=== PATIENT | female | born 1960 | race African-American/Black ===

== ENCOUNTER 2019-07-22 14:30 | Inpatient (IN) | payer SELFPAY ==
--- NOTE | 2019-07-22 15:31 | ER Document Report ---
ED Medical Screen (RME) - General Chief Complaint: Foot Injury Stated Complaint: FOOT INJURY/SWELLING - LEFT Time Seen by Provider: 07/22/19 15:24 Primary Care Provider: MABEL STEPHENS MD [Primary Care Provider] - Follow up as needed Mode of Arrival: Wheelchair Information source: Patient Notes: 59-year-old female presents to ED for a puncture wound to her left great toe a week ago. It is now painful red swollen and draining. It does have a foul odor. She is a diabetic. She also has a history of COPD and states she has a bronchitis now. She is alert oriented respirations regular and unlabored. I have greeted and performed a rapid initial assessment of this patient. A comprehensive ED assessment and evaluation of the patient, analysis of test results and completion of medical decision making process will be conducted by an additional ED providers. - Related Data Allergies/Adverse Reactions: naproxen [From Naprosyn] Allergy (Intermediate, Verified 04/19/10 18:09) Redness, Hives Past Medical History - Past Medical History Cardiac Medical History: Denies: Hx Coronary Artery Disease, Hx Heart Attack, Hx Hypertension Pulmonary Medical History: Reports: Hx Bronchitis, Hx COPD Denies: Hx Asthma, Hx Pneumonia Neurological Medical History: Denies: Hx Cerebrovascular Accident, Hx Seizures Musculoskeltal Medical History: Reports Hx Arthritis - Back & knees Past Surgical History: Denies: Hx Hysterectomy, Hx Pacemaker - Immunizations Hx Diphtheria, Pertussis, Tetanus Vaccination: Yes Physical Exam - Vital signs Vitals: Temp Pulse Resp BP Pulse Ox 98.7 F 88 16 166/88 H 96 07/22/19 14:44 07/22/19 14:44 07/22/19 14:44 07/22/19 14:44 07/22/19 14:44 Course - Vital Signs Vital signs: Temp Pulse Resp BP Pulse Ox 98.7 F 88 16 166/88 H 96 07/22/19 14:44 07/22/19 14:44 07/22/19 14:44 07/22/19 14:44 07/22/19 14:44 Doctor's Discharge - Discharge Referrals: MABEL STEPHENS MD [Primary Care Provider] - Follow up as needed
--- NOTE | 2019-07-22 16:02 | RADIOLOGY REPORT (SQ) ---
EXAM DESCRIPTION: FOOT LEFT COMPLETE IMAGES COMPLETED DATE/TIME: 07/22/2019 3:52 pm REASON FOR STUDY: Puncture wound week ago infected great toe diabeti COMPARISON: None. NUMBER OF VIEWS: Three views. TECHNIQUE: AP, lateral and oblique radiographic images acquired of the left foot. LIMITATIONS: None. FINDINGS: MINERALIZATION: Osteopenia. BONES: No acute fracture or dislocation. There is no erosion. JOINTS: The normal tarsometatarsal alignment is preserved. SOFT TISSUES: Vascular calcifications. There is no soft tissue swelling, radiopaque foreign body or subcutaneous emphysema. OTHER: Dorsal osteophytes in the midfoot and enthesophytes at the calcaneal insertions of the plantar fascia and Achilles tendon. IMPRESSION: No acute osseous abnormality of the left foot. No subcutaneous emphysema or radiopaque foreign body. TECHNICAL DOCUMENTATION: JOB ID: [id number] 2010 [employer]- All Rights Reserved Reading location - IP/workstation name: [email or web address]
[2019-07-22 16:38] LABS: ABSOLUTE BASOPHILS # (AUTO) 0.1 10^3/uL (0.0-0.2); ABSOLUTE EOSINOPHILS # (AUTO) 0.1 10^3/uL (0.0-0.6); ABSOLUTE LYMPHOCYTES (AUTO) 1.8 10^3/uL (0.5-4.7); ABSOLUTE MONOCYTES (AUTO) 0.7 10^3/uL (0.1-1.4); ABSOLUTE NEUT (AUTO) 9.3 10^3/uL (1.7-8.2); BASOPHILS % (AUTO) 0.7 % (0-2); EOSINOPHILS % (AUTO) 0.6 % (0-6); HEMATOCRIT 39.2 % (36.0-47.0); HEMOGLOBIN 13.3 g/dL (12.0-15.5); LYMPHOCYTES % (AUTO) 14.7 % (13-45); MEAN CORPUSCULAR HEMOGLOBIN 29.7 pg (27.0-33.4); MEAN CORPUSCULAR VOLUME 87 fl (80-97); MONOCYTES % (AUTO) 6.2 % (3-13); PLATELET COUNT 292 10^3/uL (150-450); RED BLOOD COUNT 4.49 10^6/uL (3.72-5.28); RED CELL DISTRIBUTION WIDTH 12.9 % (11.5-14.0); SEGMENTED NEUTROPHILS % (AUTO) 77.8 % (42-78); TOTAL CELLS COUNTED % (AUTO) 100 %
[2019-07-22 16:58] LABS: ALBUMIN 3.9 g/dL (3.5-5.0); ALKALINE PHOSPHATASE 240 U/L (38-126); ANION GAP 7 (5-19); ASPARTATE AMINO TRANSFERASE 41 U/L (14-36); BILIRUBIN,TOTAL 0.5 mg/dL (0.2-1.3); BLOOD UREA NITROGEN 17 mg/dL (7-20); CALCIUM 9.5 mg/dL (8.4-10.2); CARBON DIOXIDE 30 mmol/L (22-30); CHLORIDE 98 mmol/L (98-107); GLUCOSE 353 mg/dL (75-110); POTASSIUM 4.3 mmol/L (3.6-5.0); TOTAL PROTEIN 7.5 g/dL (6.3-8.2)
[2019-07-22] MEDS ORDERED: NORMAL SALINE 1000 ML 1,000 ML IV ONE (17:39)
[2019-07-22] MEDS ORDERED: PIPERACILLIN/TAZOBACTAM 3.375 GM VIAL IV ONE (17:41)
[2019-07-22] MEDS ORDERED: INSULIN REG, HUMAN 100 UNIT/ML 3 ML VIAL (PYX) SUBCUT ONE (17:43)
--- NOTE | 2019-07-22 17:46 | ER Document Report ---
ED Extremity Problem, Lower - General Chief Complaint: Foot Injury Stated Complaint: FOOT INJURY/SWELLING - LEFT Time Seen by Provider: 07/22/19 15:24 Mode of Arrival: Wheelchair Information source: Patient Notes: Patient states that she stepped on a tool last week. Patient states that she haji s had persistent left great toe pain since the injury. Patient denies any fever. Patient does report a history of COPD and diabetes and doses insulin 70/30 herself at home to manage her diabetes as she does not have insurance to see her primary doctor. - HPI Patient complains to provider of: Pain, Swelling Location: Foot Occurred: Last week Onset/Duration: Worse Quality of pain: Achy Pain Level: 3 Context: Barefoot Recent injury: Yes Associated symptoms: denies: Fever Exacerbated by: Movement, Walking Relieved by: Nothing - Related Data Allergies/Adverse Reactions: naproxen [From Naprosyn] Allergy (Intermediate, Verified 07/22/19 15:35) Redness, Hives Past Medical History - General Information source: Patient - Social History Smoking Status: Never Smoker Chew tobacco use (# tins/day): No Frequency of alcohol use: None Drug Abuse: None Occupation: nurse aid Lives with: Family Family History: Reviewed & Not Pertinent Patient has homicidal ideation: No - Past Medical History Cardiac Medical History: Denies: Hx Coronary Artery Disease, Hx Heart Attack, Hx Hypertension Pulmonary Medical History: Reports: Hx Bronchitis, Hx COPD Denies: Hx Asthma, Hx Pneumonia Neurological Medical History: Denies: Hx Cerebrovascular Accident, Hx Seizures Endocrine Medical History: Reports: Hx Diabetes Mellitus Type 2 Musculoskeletal Medical History: Reports Hx Arthritis - Back & knees Past Surgical History: Reports: Hx Breast Surgery. Denies: Hx Hysterectomy, Hx Pacemaker - Immunizations Hx Diphtheria, Pertussis, Tetanus Vaccination: Yes Review of Systems - Review of Systems Constitutional: No symptoms reported. denies: Fever EENT: No symptoms reported Cardiovascular: No symptoms reported Respiratory: No symptoms reported. denies: Cough Gastrointestinal: No symptoms reported. denies: Nausea, Vomiting Genitourinary: No symptoms reported Female Genitourinary: No symptoms reported Musculoskeletal: Joint pain - Left foot pain, Other - Foot and great toe swelling Skin: Other - Redness to left great toe Hematologic/Lymphatic: No symptoms reported Neurological/Psychological: No symptoms reported Physical Exam - Vital signs Vitals: Temp Pulse Resp BP Pulse Ox 98.7 F 88 16 166/88 H 96 07/22/19 14:44 07/22/19 14:44 07/22/19 14:44 07/22/19 14:44 07/22/19 14:44 - General General appearance: Appears well, Alert In distress: None - HEENT Head: Normocephalic, Atraumatic Eyes: Normal Conjunctiva: Normal Nasal: Normal Mouth/Lips: Normal Mucous membranes: Normal Neck: Normal, Supple. No: Lymphadenopathy - Respiratory Respiratory status: No respiratory distress Chest status: Nontender Breath sounds: Normal. No: Rales, Rhonchi, Stridor, Wheezing Chest palpation: Normal - Cardiovascular Rhythm: Regular Heart sounds: S1 appreciated, S2 appreciated Murmur: No - Back Back: Normal - Extremities General upper extremity: Normal inspection, Normal ROM General lower extremity: Tender - Tenderness to left foot, Normal ROM Foot: Tender, Edema. No: No evidence of FB Notes: Patient with tenderness to left foot worse to midfoot area, 2+ edema. Patient with erythema to left great toe with open wound to plantar surface of the left great toe, minimal tenderness to the left great toe. Patient with malodorous wound - Neurological Neuro grossly intact: Yes Cognition: Normal Ruben Coma Scale Eye Opening: Spontaneous Ruben Coma Scale Verbal: Oriented [place] Coma Scale Motor: Obeys Commands [place] Coma Scale Total: 15 - Psychological Associated symptoms: Normal affect, Normal mood - Skin Skin Temperature: Warm Skin Moisture: Dry Skin Color: Erythema - Left great toe Character of irregularity: Other - Open wound to plantar surface of left great toe with yellow discoloration, toe mildly erythematous with edema Irregularity with: Swelling, Tenderness, Inflammation Course - Re-evaluation Re-evalutation: 07/22/19 17:47 Consulted with the surgeon Dr. Hutson who agrees to come and evaluate patient. Recommends having medicine to admit patient. 07/22/19 17:[address] Stone who agrees to accept patient as a medical floor admission at this time. Patient is agreeable with plan for admission. - Vital Signs Vital signs: Temp Pulse Resp BP Pulse Ox 98.8 F 84 12 126/68 H 100 07/22/19 21:15 07/22/19 21:20 07/22/19 21:20 07/22/19 21:20 07/22/19 21:20 - Laboratory Result Diagrams: 07/22/19 15:58 07/22/19 15:58 Laboratory results interpreted by me: 07/22/19 07/22/19 15:58 15:58 WBC 12.0 H Absolute Neuts (auto) 9.3 H Sodium 135.4 L Glucose 353 H AST 41 H ALT 49 H Alkaline Phosphatase 240 H 07/22/19 17:47 Labs- All tests 24 hr 07/22/19 07/22/19 15:58 15:58 WBC 12.0 H RBC 4.49 Hgb 13.3 Hct 39.2 MCV 87 MCH 29.7 MCHC 34.0 RDW 12.9 Plt Count 292 Lymph % (Auto) 14.7 [place] % (Auto) 6.2 Eos % (Auto) 0.6 Baso % (Auto) 0.7 Absolute Neuts (auto) 9.3 H Absolute Lymphs (auto) 1.8 Absolute Monos (auto) 0.7 Absolute Eos (auto) 0.1 Absolute Basos (auto) 0.1 Seg Neutrophils % 77.8 Sodium 135.4 L Potassium 4.3 Chloride 98 Carbon Dioxide 30 Anion Gap 7 BUN 17 Creatinine 0.68 Est GFR ( Amer) > 60 Est GFR (MDRD) Non-Af > 60 Glucose 353 H Calcium 9.5 Total Bilirubin 0.5 Direct Bilirubin 0.0 Neonat Total Bilirubin Not Reportable Neonat Direct Bilirubin Not Reportable Neonat Indirect Bili Not Reportable AST 41 H ALT 49 H Alkaline Phosphatase 240 H Total Protein 7.5 Albumin 3.9 - Diagnostic Test Radiology reviewed: Image reviewed, Reports reviewed Discharge - Discharge Clinical Impression: Diabetic foot infection, Hyperglycemia Condition: Stable Disposition: ADMITTED INPATIENT Admitting Provider: Chase (Hospitalist) Unit Admitted: Medical Floor
[2019-07-22] MEDS ORDERED: ONDANSETRON HCL INJ/PF 4 MG/2 ML SDV IV PRN ×2 (18:29→20:52)
[2019-07-22] MEDS ORDERED: DEXTROSE 40% GEL 15 GM TUBE PO PRN ×4 (18:29→18:34)
[2019-07-22] MEDS ORDERED: DEXTROSE 50%-WATER 25 GM/50 ML DISP.SYRIN IV PRN ×4 (18:29→18:34)
[2019-07-22] MEDS ORDERED: GLUCAGON,HUMAN RECOMB 1 MG INJ SUBCUT PRN (18:29)
[2019-07-22] MEDS ORDERED: IPRATROPIUM/ALBUTEROL 0.5-2.5 MG/3 ML AMPUL NEB PRN (18:29)
[2019-07-22] MEDS ORDERED: GLUCAGON,HUMAN RECOMB 1 MG INJ IM PRN (18:34)
--- NOTE | 2019-07-22 18:46 | PDOC H&P ---
History of Present Illness Admission Date/PCP: 07/22/19 17:59 ARTEM CROUCH DO Patient complains of: Left foot wound History of Present Illness: YANI WORTHINGTON is a 59 year old female with a history of type 2 diabetes mellitus, who presents to the hospital complaining of worsening of her left foot wound. Patient sustained a puncture injury to her left big toe about 1 week ago after stepping on her 's tools. Subsequently the area became more inflamed and more swollen. The surrounding area became erythematous. Denies any fevers or chills. She also endorses tenderness over the dorsum and plantar surface of her foot. In the ER, surgery was consulted and will be taking patient to the OR for incision and debridement. Patient currently n.p.o. status. Past Medical History Cardiac Medical History: Denies: Coronary Artery Disease, Myocardial Infarction, Hypertension Pulmonary Medical History: Reports: Bronchitis, Chronic Obstructive Pulmonary Disease (COPD) Denies: Asthma, Pneumonia Neurological Medical History: Denies: Seizures Endocrine Medical History: Reports: Diabetes Mellitus Type 2 Musculoskeltal Medical History: Reports: Arthritis - Back & knees Hematology: Reports: Anemia Past Surgical History Past Surgical History: Denies: Hysterectomy, Pacemaker Social History Lives with: Family Smoking Status: Never Smoker Electronic Cigarette use?: No Frequency of Alcohol Use: Rare Hx Recreational Drug Use: No - Advance Directive Resuscitation Status: Full Code Family History Family History: DM, Hypertension Parental Family History Reviewed: Yes Children Family History Reviewed: NA Sibling(s) Family History Reviewed.: NA Medication/Allergy Home Medications: Hum Insulin NPH/Reg Insulin Hm [Novolin 70-30 100 Unit/Ml Vial] 20 unit SQ QPM 11/07/13 Hum Insulin NPH/Reg Insulin Hm [Novolin 70-30 100 Unit/Ml Vial] 25 units SQ QAM 11/07/13 Lisinopril 5 mg PO DAILY 11/07/13 Metformin HCl [Glucophage] 1,000 mg PO BID 11/07/13 Allergies/Adverse Reactions: naproxen [From Naprosyn] Allergy (Intermediate, Verified 07/22/19 15:35) Redness, Hives Review of Systems Constitutional: ABSENT: chills, fever(s) Eyes: ABSENT: visual disturbances Nose, Mouth, and Throat: ABSENT: sore throat Cardiovascular: ABSENT: chest pain Respiratory: ABSENT: dyspnea Gastrointestinal: ABSENT: abdominal pain, diarrhea, nausea, vomiting Genitourinary: ABSENT: dysuria, hematuria Integumentary: ABSENT: diaphoresis Neurological: ABSENT: dizziness Endocrine: ABSENT: polyuria Allergic/Immunologic: PRESENT: other - denies rhinorrhea Physical Exam Vital Signs: Temp Pulse Resp BP Pulse Ox 98.7 F 88 16 166/88 H 96 07/22/19 15:28 07/22/19 14:44 07/22/19 14:44 07/22/19 14:44 07/22/19 14:44 Intake & Output 07/21/19 07/22/19 07/23/19 06:59 06:59 06:59 Weight 91.1 kg General appearance: PRESENT: no acute distress, cooperative Head exam: PRESENT: normocephalic Neck exam: ABSENT: JVD Respiratory exam: PRESENT: clear to auscultation jadon, unlabored. ABSENT: wheezes Cardiovascular exam: PRESENT: RRR, +S1, +S2. ABSENT: tachycardia GI/Abdominal exam: PRESENT: soft. ABSENT: rebound, rigid, tenderness Extremities exam: PRESENT: other - Erythema surrounding dorsum of the distal left foot. Left toe seems to have indurated pocket of what seems to be likely purulent substance.. ABSENT: pedal edema Neurological exam: PRESENT: alert, awake, oriented to person, oriented to place, oriented to time Psychiatric exam: ABSENT: agitated, anxious Focused psych exam: ABSENT: pressured speech Results Laboratory Results: 07/22/19 15:58 07/22/19 15:58 07/22/19 07/22/19 15:58 15:58 WBC 12.0 H RBC 4.49 Hgb 13.3 Hct 39.2 MCV 87 MCH 29.7 MCHC 34.0 RDW 12.9 Plt Count 292 Seg Neutrophils % 77.8 Sodium 135.4 L Potassium 4.3 Chloride 98 Carbon Dioxide 30 Anion Gap 7 BUN 17 Creatinine 0.68 Est GFR ( Amer) > 60 Glucose 353 H Calcium 9.5 Total Bilirubin 0.5 AST 41 H Alkaline Phosphatase 240 H Total Protein 7.5 Albumin 3.9 Impressions: Foot X-Ray 07/22/19 15:28 IMPRESSION: No acute osseous abnormality of the left foot. No subcutaneous emphysema or radiopaque foreign body. Assessment and Plan - Diagnosis (1) Diabetic foot infection Is this a current diagnosis for this admission?: Yes Plan: Patient has been evaluated by Dr. Hutson who is planning to take patient to the OR. Blood cultures have been obtained Broad-spectrum antibiotic coverage given diabetes with vancomycin and Zosyn. Pain control as needed. (2) Diabetes mellitus type 2 in obese Is this a current diagnosis for this admission?: Yes Plan: Patient states she takes 2000 mg twice daily of metformin and Novolin 70/30 30 units twice a day. Continue 70/30 insulin to start tomorrow. NPO currently. Accu-Cheks and sliding scale insulin. Hyperglycemic at this time. (3) COPD (chronic obstructive pulmonary disease) Qualifiers: COPD type: unspecified COPD Qualified Code(s): J44.9 - Chronic obstructive pulmonary disease, unspecified Is this a current diagnosis for this admission?: Yes Plan: Not acutely exacerbated. Nebulizer treatments as needed. - Time Time Spent with patient: 25-34 minutes
[2019-07-22] MEDS ORDERED: TRAMADOL HCL 50 MG TABLET PO PRN (18:47)
--- NOTE | 2019-07-22 19:28 | PDOC CONSULTATION ---
Consultation Consult Date: 07/22/19 Attending physician:: OCTAVIO FLORES Provider Consulted: NEYDA CESAR Consult reason:: Diabetic foot infection History of Present Illness Admission Date/PCP: 07/22/19 17:59 ARTEM CROUCH DO Patient complains of: Left foot pain History of Present Illness: YANI WORTHINGTON is a 59 year old female YANI WORTHINGTON is a 59 year old female with a history of type 2 diabetes mellitus, who presents to the hospital complaining of worsening of her left foot wound. Patient sustained a puncture injury to her left big toe about 1 week ago after stepping on her 's tools. Subsequently the area became more inflamed and more swollen. The surrounding area became erythematous. Denies any fevers or chills. She also endorses tenderness over the dorsum and plantar surface of her foot. In the ER, surgery was consulted and will be taking patient to the OR for incision and debridement. Patient currently n.p.o. status Past Medical History Cardiac Medical History: Denies: Coronary Artery Disease, Myocardial Infarction, Hypertension Pulmonary Medical History: Reports: Bronchitis, Chronic Obstructive Pulmonary Disease (COPD) Denies: Asthma, Pneumonia Neurological Medical History: Denies: Seizures Endocrine Medical History: Reports: Diabetes Mellitus Type 2 Musculoskeltal Medical History: Reports: Arthritis - Back & knees Hematology: Reports: Anemia Past Surgical History Past Surgical History: Denies: Hysterectomy, Pacemaker Social History Lives with: Family Smoking Status: Never Smoker Electronic Cigarette use?: No Frequency of Alcohol Use: Rare Hx Recreational Drug Use: No - Advance Directive Resuscitation Status: Full Code Family History Family History: DM, Hypertension Parental Family History Reviewed: No Children Family History Reviewed: NA Sibling(s) Family History Reviewed.: NA Medication/Allergy Home Medications: Hum Insulin NPH/Reg Insulin Hm [Novolin 70-30 100 Unit/Ml Vial] 20 unit SQ QPM 11/07/13 Hum Insulin NPH/Reg Insulin Hm [Novolin 70-30 100 Unit/Ml Vial] 25 units SQ QAM 11/07/13 Lisinopril 5 mg PO DAILY 11/07/13 Metformin HCl [Glucophage] 1,000 mg PO BID 11/07/13 Allergies/Adverse Reactions: naproxen [From Naprosyn] Allergy (Intermediate, Verified 07/22/19 15:35) Redness, Hives Review of Systems Constitutional: PRESENT: fever(s) Eyes: ABSENT: as per HPI, visual disturbances, other Ears: ABSENT: as per HPI, hearing changes, other Nose, Mouth, and Throat: ABSENT: as per HPI, headache(s), mouth pain, sore throat, vertigo, other Breasts: ABSENT: as per HPI, other Cardiovascular: ABSENT: as per HPI, chest pain, dyspnea on exertion, edema, orthropnea, palpitations, other Respiratory: ABSENT: as per HPI, cough, dyspnea, hemoptysis, sputum, other Gastrointestinal: ABSENT: as per HPI, abdominal pain, bloating, coffee ground emesis, constipation, diarrhea, dysphagia, heartburn, hematemesis, hematochezia, melena, nausea, vomiting, other Musculoskeletal: ABSENT: joint swelling Integumentary: ABSENT: as per HPI, diaphoresis, erythema, lesions, pruritus, rash, wounds, other Neurological: ABSENT: as per HPI, abnormal gait, abnormal movements, abnormal speech, confusion, convulsions, dizziness, focal weakness, frequent falls, lack of coordination, memory loss, numbness, paresthesias, restless legs, syncope, tingling, tremor(s), vertigo, weakness, other Psychiatric: ABSENT: as per HPI, anxiety, depression, hallucinations, homidical ideation, suicidal ideation, other Endocrine: ABSENT: as per HPI, cold intolerance, flushing, heat intolerance, menstrual abnormalities, polydipsia, polyphagia, polyuria, other Allergic/Immunologic: ABSENT: as per HPI, seasonal rhinorrhea, other Physical Exam Vital Signs: Temp Pulse Resp BP Pulse Ox 98.7 F 88 16 166/88 H 96 07/22/19 15:28 07/22/19 14:44 07/22/19 14:44 07/22/19 14:44 07/22/19 14:44 Intake & Output 07/21/19 07/22/19 07/23/19 06:59 06:59 06:59 Weight 91.1 kg General appearance: PRESENT: mild distress Head exam: PRESENT: normocephalic Eye exam: PRESENT: EOMI Ear exam: PRESENT: normal external ear exam Mouth exam: PRESENT: moist Neck exam: PRESENT: full ROM Cardiovascular exam: PRESENT: RRR Pulses: PRESENT: normal radial pulses, normal femoral pulses, +1 pedal pulses bilateral Breast: PRESENT: Normal GI/Abdominal exam: PRESENT: soft Rectal exam: PRESENT: deferred Extremities exam: PRESENT: other - Left great toe with plantar circumferential ulcer approximately dime sized with purulent drainage swelling of the first metatarsal to the mid forefoot Musculoskeletal exam: PRESENT: ambulatory Neurological exam: PRESENT: alert, awake, oriented to person, oriented to place Psychiatric exam: PRESENT: appropriate affect Skin exam: PRESENT: dry Results Laboratory Results: 07/22/19 15:58 07/22/19 15:58 07/22/19 07/22/19 15:58 15:58 WBC 12.0 H RBC 4.49 Hgb 13.3 Hct 39.2 MCV 87 MCH 29.7 MCHC 34.0 RDW 12.9 Plt Count 292 Seg Neutrophils % 77.8 Sodium 135.4 L Potassium 4.3 Chloride 98 Carbon Dioxide 30 Anion Gap 7 BUN 17 Creatinine 0.68 Est GFR ( Amer) > 60 Glucose 353 H Calcium 9.5 Total Bilirubin 0.5 AST 41 H Alkaline Phosphatase 240 H Total Protein 7.5 Albumin 3.9 Impressions: Foot X-Ray 07/22/19 15:28 IMPRESSION: No acute osseous abnormality of the left foot. No subcutaneous emphysema or radiopaque foreign body. Assessment & Plan - Diagnosis (1) Diabetic foot infection Is this a current diagnosis for this admission?: Yes - Plan Summary Plan Summary: Impression diabetic foot infection and the left great toe with draining purulent fluid from a plantar ulcer. I suspect we will have to perform a left great toe amputation however the patient wishes a trial of debridement first I explained that if should the infection penetrate the deep tissues as I suspect it will she will need a toe a mputation but we will start with the local wound debridement patient agrees to proceed risks and benefits of been discussed
[2019-07-22] MEDS ORDERED: VANCOMYCIN HCL 1,250 MG in DEXTROSE 5%-WATER 250 ML IV ONE (20:00)
[2019-07-22] MEDS ORDERED: KETAMINE HCL INJ 500 MG/10 ML VIAL ONE (20:18)
[2019-07-22] MEDS ORDERED: FENTANYL CITRATE INJ/PF 100 MCG/2 ML AMPUL ONE (20:18)
[2019-07-22] MEDS ORDERED: MIDAZOLAM 2 MG/2 ML INJ ONE (20:18)
[2019-07-22] MEDS ORDERED: DEXMEDETOMIDINE INJ 80 MCG/20 ML VIAL IV ONE (20:19)
[2019-07-22] MEDS ORDERED: LIDOCAINE 2% INJ-PF (20 MG/ML) 10 ML AMPUL ONE (20:19)
[2019-07-22] MEDS ORDERED: PROPOFOL INJ 200 MG/20 ML VIAL IV ONE (20:19)
[2019-07-22] MEDS ORDERED: FENTANYL CITRATE INJ/PF 100 MCG/2 ML AMPUL IV PRN ×3 (20:52)
[2019-07-22] MEDS ORDERED: PROMETHAZINE HCL INJ 25 MG/1 ML VIAL IV PRN ×2 (20:52)
[2019-07-22] MEDS ORDERED: DIPHENHYDRAMINE HCL 50 MG/ML VIAL IV PRN (20:52)
[2019-07-22] MEDS ORDERED: MEPERIDINE HCL/PF INJ 25 MG/1 ML DISP.SYRIN IV PRN (20:52)
--- NOTE | 2019-07-22 21:25 | Operative Report ---
Nonrecallable Operative Report DATE OF SURGERY: 07/22/19 PREOPERATIVE DIAGNOSIS: Diabetic foot infection left great toe POSTOPERATIVE DIAGNOSIS: Diabetic foot infection left great toe OPERATION: Left great toe amputation SURGEON: NEYDA CESAR ANESTHESIA: IV-Regional TISSUE REMOVED OR ALTERED: Left great toe COMPLICATIONS: None INTRAOPERATIVE FINDINGS: 10 cc PROCEDURE: Patient was brought to the operating awake alert in stable condition placed on the operative table supine position and given a regional IV ankle block as well as sedation. After appropriate timeout and site verification the procedure commenced. The left great toe had a draining abscess at the plantar surface of it and it was excised elliptically with a 15 blade dissection was carried down through the deep subcutaneous tissue and we noted the infection going deep to the distal phalanx for this reason I elected to perform an amputation. A racquet incision was made at the base of the first metatarsal on the medial aspect and continued to the webspace. Dissection was then carried down through subcutaneous tissue and the tendons with Bovie cautery or the 15 blade when she reached the metatarsal head it was identified and the periosteum was raised to the mid metatarsal and then the bone was amputated with a bone cutter. Hemostasis of the bone edge was obtained with digital pressure and Bovie cautery the skin easily would reapproximated. The wound was irrigated with normal saline suctioned dry when hemostasis was intact the deep tissue was reapproximated with interrupted 3-0 Vicryl and then the skin was reapproximated with loosely placed 2-0 nylon sterile dressing was applied which completed the procedure estimated blood loss was 10 cc sponge needle counts were correct x2 the patient was then transferred recovery in stable condition
[2019-07-22] MEDS ORDERED: VANCOMYCIN HCL INJ 1000 MG VIAL IV SCH (22:00)
[2019-07-23] MEDS: ACETAMINOPHEN 325 MG TABLET PO PRN ×3 (00:26→12:51)
[2019-07-23] MEDS: PIPERACILLIN/TAZOBACTAM 3.375 GM VIAL IV SCH ×2 (00:52→06:45)
[2019-07-23] MEDS: INSULIN LISPRO 100 UNIT/ML 3 ML VIAL SUBCUT SCH ×4 (00:52→17:15)
[2019-07-23 05:09] LABS: HEMATOCRIT 32.6 % (36.0-47.0); HEMOGLOBIN 11.3 g/dL (12.0-15.5); MEAN CORPUSCULAR HGB CONC 34.8 g/dL (32.0-36.0); MEAN CORPUSCULAR VOLUME 86 fl (80-97); PLATELET COUNT 240 10^3/uL (150-450); RED BLOOD COUNT 3.78 10^6/uL (3.72-5.28); RED CELL DISTRIBUTION WIDTH 12.9 % (11.5-14.0); WHITE BLOOD COUNT 9.4 10^3/uL (4.0-10.5)
[2019-07-23 05:35] LABS: ANION GAP 7 (5-19); BLOOD UREA NITROGEN 13 mg/dL (7-20); CALCIUM 8.2 mg/dL (8.4-10.2); CARBON DIOXIDE 27 mmol/L (22-30); CHLORIDE 100 mmol/L (98-107); GLUCOSE 333 mg/dL (75-110); POTASSIUM 3.8 mmol/L (3.6-5.0)
[2019-07-23] MEDS: HUM INSULIN NPH/REG INSULIN HM 100 UNIT/1 ML 3 ML SUBCUT SCH ×2 (08:45→17:20)
[2019-07-23] MEDS: ENOXAPARIN SODIUM INJ 40 MG/0.4 ML DISP.SYRIN SUBCUT SCH (10:25)
[2019-07-23] MEDS: VANCOMYCIN HCL 750 MG in DEXTROSE 5%-WATER 250 ML IV SCH ×2 (10:25→22:04)
--- NOTE | 2019-07-23 14:17 | PDOC PROGRESS REPORT ---
Subjective Progress Note for:: 07/23/19 Subjective:: Still complaining of pain at the amputation site. The prescribed pain medicine is somewhat helpful for a short period. Surgery has been by already. She is passing flatus but has not had a bowel movement. Reason For Visit: INFECTED DIABETIC FOOT WOUND Physical Exam Vital Signs: Temp Pulse Resp BP Pulse Ox 98.2 F 86 16 141/70 H 96 07/23/19 10:57 07/23/19 10:57 07/23/19 10:57 07/23/19 10:57 07/23/19 10:57 Intake & Output 07/22/19 07/23/19 07/24/19 06:59 06:59 06:59 Intake Total 1400 430 Output Total 280 Balance 1120 430 Weight 91.1 kg General appearance: PRESENT: cooperative, mild distress, well-developed, well- nourished Head exam: PRESENT: atraumatic, normocephalic Eye exam: PRESENT: conjunctiva pink. ABSENT: scleral icterus Ear exam: PRESENT: normal external ear exam. ABSENT: bleeding, drainage Mouth exam: PRESENT: moist, tongue midline Respiratory exam: PRESENT: clear to auscultation jadon, symmetrical, unlabored. ABSENT: accessory muscle use, rales, rhonchi, tachypnea, wheezes Cardiovascular exam: PRESENT: RRR, +S1, +S2, systolic murmur - 2/6. ABSENT: diastolic murmur, irregular rhythm, tachycardia GI/Abdominal exam: PRESENT: normal bowel sounds, soft. ABSENT: distended, guarding, tenderness Rectal exam: PRESENT: deferred Extremities exam: PRESENT: other - Left foot wrapped in Kerlix gauze. Blood- tinged area at the site of the hallux amputation Musculoskeletal exam: ABSENT: ambulatory - Has not been out of bed yet since the surgery Neurological exam: PRESENT: alert, awake, oriented to person, oriented to place, oriented to time, oriented to situation, CN II-XII grossly intact. ABSENT: alte red, motor sensory deficit Psychiatric exam: PRESENT: flat affect. ABSENT: agitated, anxious Focused psych exam: ABSENT: delusional, paranoid, restlessness Skin exam: PRESENT: dry, normal color, warm, other - Dressing on left foot as noted above. ABSENT: rash Results Laboratory Results: 07/23/19 04:26 07/23/19 04:26 07/22/19 07/22/19 07/23/19 15:58 15:58 04:26 WBC 12.0 H 9.4 RBC 4.49 3.78 Hgb 13.3 11.3 L Hct 39.2 32.6 L MCV 87 86 MCH 29.7 30.0 MCHC 34.0 34.8 RDW 12.9 12.9 Plt Count 292 240 Seg Neutrophils % 77.8 Sodium 135.4 L Potassium 4.3 Chloride 98 Carbon Dioxide 30 Anion Gap 7 BUN 17 Creatinine 0.68 Est GFR ( Amer) > 60 Glucose 353 H Calcium 9.5 Magnesium Total Bilirubin 0.5 AST 41 H Alkaline Phosphatase 240 H Total Protein 7.5 Albumin 3.9 07/23/19 04:26 WBC RBC Hgb Hct MCV MCH MCHC RDW Plt Count Seg Neutrophils % Sodium 134.0 L Potassium 3.8 Chloride 100 Carbon Dioxide 27 Anion Gap 7 BUN 13 Creatinine 0.62 Est GFR ( Amer) > 60 Glucose 333 H Calcium 8.2 L Magnesium 1.6 Total Bilirubin AST Alkaline Phosphatase Total Protein Albumin Impressions: Foot X-Ray 07/22/19 15:28 IMPRESSION: No acute osseous abnormality of the left foot. No subcutaneous emphysema or radiopaque foreign body. Assessment and Plan - Diagnosis (1) Diabetic foot infection Is this a current diagnosis for this admission?: Yes Plan: Patient has been evaluated by Dr. Hutson who is planning to take patient to the OR. Blood cultures have been obtained Broad-spectrum antibiotic coverage given diabetes with vancomycin and Zosyn. Pain control as needed. 07/23/2019 Of the amputation has been performed. The patient will likely only need for 5 days of IV antibiotics postop as the infected tissue was removed and blood cultures are negative so far. (2) Hyperglycemia due to type 2 diabetes mellitus Qualifiers: Diabetes mellitus extermination inspector insulin use: with extermination inspector use Qualified Code(s): E11.65 - Type 2 diabetes mellitus with hyperglycemia; Z79.4 - joint terminal attack controller (current) use of insulin Is this a current diagnosis for this admission?: Yes Plan: 07/23/2019 Accu-Cheks still variable. 70/30 insulin has been restarted. Continue current regimen including sliding scale. (3) COPD (chronic obstructive pulmonary disease) Qualifiers: COPD type: unspecified COPD Qualified Code(s): J44.9 - Chronic obstructive pulmonary disease, unspecified Is this a current diagnosis for this admission?: Yes Plan: Not acutely exacerbated. Nebulizer treatments as needed. 07/23/2019 Stable as noted above. No changes in the treatment plan. (4) Status post amputation of left great toe Is this a current diagnosis for this admission?: Yes Plan: 07/23/2019 Physical therapy consult has been ordered. - Time Time Spent with patient: Less than 15 minutes Medications reviewed and adjusted accordingly: Yes Anticipated discharge: Home
[2019-07-23] MEDS: PIPERACILLIN SODIUM/TAZOBACTAM 3.375 GM in NORMAL SALINE 100 ML IV SCH (14:34)
[2019-07-23] MEDS: TRAMADOL HCL 50 MG TABLET PO PRN (14:44)
[2019-07-23] MEDS: METFORMIN HCL 500 MG TABLET PO SCH (17:19)
--- NOTE | 2019-07-23 20:12 | PDOC PROGRESS REPORT ---
Subjective Progress Note for:: 07/23/19 Reason For Visit: INFECTED DIABETIC FOOT WOUND Physical Exam Vital Signs: Temp Pulse Resp BP Pulse Ox 98.8 F 92 16 147/71 H 95 07/23/19 16:05 07/23/19 16:05 07/23/19 16:05 07/23/19 16:05 07/23/19 16:05 Intake & Output 07/22/19 07/23/19 07/24/19 06:59 06:59 06:59 Intake Total 1400 1230 Output Total 280 Balance 1120 1230 Weight 91.1 kg Results Laboratory Results: 07/23/19 04:26 07/23/19 04:26 07/23/19 07/23/19 04:26 04:26 WBC 9.4 RBC 3.78 Hgb 11.3 L Hct 32.6 L MCV 86 MCH 30.0 MCHC 34.8 RDW 12.9 Plt Count 240 Sodium 134.0 L Potassium 3.8 Chloride 100 Carbon Dioxide 27 Anion Gap 7 BUN 13 Creatinine 0.62 Est GFR ( Amer) > 60 Glucose 333 H Calcium 8.2 L Magnesium 1.6 Impressions: Foot X-Ray 07/22/19 15:28 IMPRESSION: No acute osseous abnormality of the left foot. No subcutaneous emphysema or radiopaque foreign body. Assessment & Plan - Diagnosis (1) Diabetic foot infection Is this a current diagnosis for this admission?: Yes - Plan Summary Plan Summary: This is a 59-year-old female with a severe diabetic foot infection. She is status post amputation of the great toe. The incision is clean, dry, and intact. I will leave her dressing in place today. Plan for removal of the dressing tomorrow. I have encouraged her to begin with ambulation. She should avoid all pressure to the forefoot. Weightbearing on the heel only. The patient expressed good understanding of this. Surgery will continue to follow with you.
[2019-07-24] MEDS: PIPERACILLIN SODIUM/TAZOBACTAM 3.375 GM in NORMAL SALINE 100 ML IV SCH ×4 (01:17→22:31)
[2019-07-24] MEDS: INSULIN LISPRO 100 UNIT/ML 3 ML VIAL SUBCUT SCH ×4 (02:07→17:14)
[2019-07-24] MEDS: TRAMADOL HCL 50 MG TABLET PO PRN ×2 (05:16→22:30)
[2019-07-24 05:39] LABS: ABSOLUTE EOSINOPHILS # (AUTO) 0.1 10^3/uL (0.0-0.6); ABSOLUTE LYMPHOCYTES (AUTO) 1.6 10^3/uL (0.5-4.7); ABSOLUTE MONOCYTES (AUTO) 0.8 10^3/uL (0.1-1.4); ABSOLUTE NEUT (AUTO) 6.6 10^3/uL (1.7-8.2); BASOPHILS % (AUTO) 0.1 % (0-2); EOSINOPHILS % (AUTO) 0.9 % (0-6); HEMATOCRIT 33.6 % (36.0-47.0); HEMOGLOBIN 11.5 g/dL (12.0-15.5); LYMPHOCYTES % (AUTO) 17.6 % (13-45); MEAN CORPUSCULAR HEMOGLOBIN 29.6 pg (27.0-33.4); MEAN CORPUSCULAR HGB CONC 34.1 g/dL (32.0-36.0); MEAN CORPUSCULAR VOLUME 87 fl (80-97); MONOCYTES % (AUTO) 9.2 % (3-13); PLATELET COUNT 256 10^3/uL (150-450); RED BLOOD COUNT 3.86 10^6/uL (3.72-5.28); RED CELL DISTRIBUTION WIDTH 12.8 % (11.5-14.0); SEGMENTED NEUTROPHILS % (AUTO) 72.2 % (42-78); TOTAL CELLS COUNTED % (AUTO) 100 %; WHITE BLOOD COUNT 9.1 10^3/uL (4.0-10.5)
[2019-07-24] MEDS: HUM INSULIN NPH/REG INSULIN HM 100 UNIT/1 ML 3 ML SUBCUT SCH ×2 (07:42→17:06)
--- NOTE | 2019-07-24 09:34 | PDOC PROGRESS REPORT ---
Subjective Progress Note for:: 07/24/19 Reason For Visit: INFECTED DIABETIC FOOT WOUND Physical Exam Vital Signs: Temp Pulse Resp BP Pulse Ox 98.0 F 94 17 156/66 H 98 07/24/19 00:21 07/24/19 00:21 07/24/19 00:21 07/24/19 00:21 07/24/19 00:21 Intake & Output 07/23/19 07/24/19 07/25/19 06:59 06:59 06:59 Intake Total 1400 1580 Output Total 280 Balance 1120 1580 Weight 91.1 kg 91.1 kg Results Laboratory Results: 07/24/19 04:53 07/23/19 04:26 07/24/19 04:53 WBC 9.1 RBC 3.86 Hgb 11.5 L Hct 33.6 L MCV 87 MCH 29.6 MCHC 34.1 RDW 12.8 Plt Count 256 Seg Neutrophils % 72.2 Impressions: Foot X-Ray 07/22/19 15:28 IMPRESSION: No acute osseous abnormality of the left foot. No subcutaneous emphysema or radiopaque foreign body. Assessment & Plan - Diagnosis (1) Diabetic foot infection Is this a current diagnosis for this admission?: Yes - Plan Summary Plan Summary: This is a 59-year-old female with a severe diabetic foot infection. She is status post amputation of the great toe. The incision is clean, dry, and intact. I have removed her dressing today. I have encouraged her to begin ambulation. She should avoid all pressure to the forefoot. Weightbearing on the heel only. The patient expressed good understanding of this. It is okay for her to shower. No dressing is necessary. Leave sutures in place x2 weeks. Follow-up with [facility] for suture removal at that time. Surgery will sign off. Please renotify with any questions or concerns.
[2019-07-24] MEDS: METFORMIN HCL 500 MG TABLET PO SCH ×2 (10:14→17:43)
[2019-07-24] MEDS: ENOXAPARIN SODIUM INJ 40 MG/0.4 ML DISP.SYRIN SUBCUT SCH (10:14)
[2019-07-24] MEDS: VANCOMYCIN HCL 750 MG in DEXTROSE 5%-WATER 250 ML IV SCH (10:14)
[2019-07-24] MEDS: ACETAMINOPHEN 325 MG TABLET PO PRN (10:15)
--- NOTE | 2019-07-24 12:19 | PDOC PROGRESS REPORT ---
Subjective Progress Note for:: 07/24/19 Subjective:: Still having pain in the toe but she is able to bear weight on the heel. Physical therapy did see her today. She was able to use the walker and walk to the bathroom. Reason For Visit: INFECTED DIABETIC FOOT WOUND Physical Exam Vital Signs: Temp Pulse Resp BP Pulse Ox 98.0 F 94 17 156/66 H 98 07/24/19 00:21 07/24/19 00:21 07/24/19 00:21 07/24/19 00:21 07/24/19 00:21 Intake & Output 07/23/19 07/24/19 07/25/19 06:59 06:59 06:59 Intake Total 1400 1580 Output Total 280 Balance 1120 1580 Weight 91.1 kg 91.1 kg General appearance: PRESENT: no acute distress, cooperative, well-developed Head exam: PRESENT: atraumatic, normocephalic Ear exam: PRESENT: normal external ear exam. ABSENT: bleeding, drainage Respiratory exam: PRESENT: clear to auscultation jadon, symmetrical, unlabored. ABSENT: rales, rhonchi, tachypnea, wheezes Cardiovascular exam: PRESENT: RRR, +S1, +S2. ABSENT: diastolic murmur, i rregular rhythm, systolic murmur GI/Abdominal exam: PRESENT: normal bowel sounds, soft. ABSENT: distended, guarding, tenderness Rectal exam: PRESENT: deferred Gentrourinary exam: ABSENT: indwelling catheter Extremities exam: ABSENT: pedal edema Musculoskeletal exam: PRESENT: ambulatory - Heel weightbearing on the left Neurological exam: PRESENT: alert, awake, oriented to person, oriented to place, oriented to time, oriented to situation, CN II-XII grossly intact Psychiatric exam: PRESENT: flat affect. ABSENT: agitated, anxious Focused psych exam: ABSENT: delusional, paranoid, restlessness Skin exam: PRESENT: dry, warm, other - Right hallux amputation. ABSENT: rash Results Laboratory Results: 07/24/19 04:53 07/23/19 04:26 07/24/19 04:53 WBC 9.1 RBC 3.86 Hgb 11.5 L Hct 33.6 L MCV 87 MCH 29.6 MCHC 34.1 RDW 12.8 Plt Count 256 Seg Neutrophils % 72.2 Impressions: Foot X-Ray 07/22/19 15:28 IMPRESSION: No acute osseous abnormality of the left foot. No subcutaneous emphysema or radiopaque foreign body. Assessment and Plan - Diagnosis (1) Diabetic foot infection Is this a current diagnosis for this admission?: Yes Plan: Patient has been evaluated by Dr. Hutson who is planning to take patient to the OR. Blood cultures have been obtained Broad-spectrum antibiotic coverage given diabetes with vancomycin and Zosyn. Pain control as needed. 07/23/2019 Of the amputation has been performed. The patient will likely only need for 5 days of IV antibiotics postop as the infected tissue was removed and blood cultures are negative so far. 07/24/2019 The patient had physical therapy today. She is using a walker. Consider di scharge tomorrow with prolonged course of oral antibiotics to compensate for the last 2 days of IV antibiotics. (2) Hyperglycemia due to type 2 diabetes mellitus Qualifiers: Diabetes mellitus mcfp insulin use: with mcfp use Qualified Code(s): E11.65 - Type 2 diabetes mellitus with hyperglycemia; Z79.4 - [facility] (current) use of insulin Is this a current diagnosis for this admission?: Yes Plan: 07/23/2019 Accu-Cheks still variable. 70/30 insulin has been restarted. Continue current regimen including sliding scale. 07/24/2019 Starting to achieve better control. Adjust insulin accordingly. (3) COPD (chronic obstructive pulmonary disease) Qualifiers: COPD type: unspecified COPD Qualified Code(s): J44.9 - Chronic obstructive pulmonary disease, unspecified Is this a current diagnosis for this admission?: Yes Plan: Not acutely exacerbated. Nebulizer treatments as needed. 07/23/2019 Stable as noted above. No changes in the treatment plan. 07/24/2019 Continue current regimen. Breathing is comfortable and patient remains adequ ately saturated on room air. (4) Status post amputation of left great toe Is this a current diagnosis for this admission?: Yes Plan: 07/23/2019 Physical therapy consult has been ordered. 07/24/2019 Patient work with physical therapy today. She is having pain but is able to slowly ambulate with heel weightbearing using a walker. I explained that she would benefit from a Darco offloading shoe and she will need a walker with home physical therapy after discharge. - Time Time Spent with patient: Less than 15 minutes Medications reviewed and adjusted accordingly: Yes Anticipated discharge: Home with Homehealth Within: within 48 hours
[2019-07-24] MEDS ORDERED: HUM INSULIN NPH/REG INSULIN HM 100 UNIT/1 ML 3 ML SUBCUT ONE (17:30)
[2019-07-24 22:03] LABS: VANCOMYCIN,TROUGH 6.6 ug/mL (5.0-20.0)
[2019-07-24 22:17] LABS: C DIFFICILE GDH NEGATIVE (NEGATIVE)
[2019-07-25] MEDS: VANCOMYCIN HCL 750 MG in DEXTROSE 5%-WATER 250 ML IV SCH (01:00)
[2019-07-25] MEDS: INSULIN LISPRO 100 UNIT/ML 3 ML VIAL SUBCUT SCH ×4 (01:45→17:34)
[2019-07-25] MEDS: PIPERACILLIN SODIUM/TAZOBACTAM 3.375 GM in NORMAL SALINE 100 ML IV SCH ×2 (05:35→15:13)
[2019-07-25] MEDS: ACETAMINOPHEN 325 MG TABLET PO PRN (05:45)
[2019-07-25] MEDS ORDERED: VANCOMYCIN HCL 750 MG in DEXTROSE 5%-WATER 250 ML IV SCH ×2 (08:00→10:00)
[2019-07-25] MEDS: HUM INSULIN NPH/REG INSULIN HM 100 UNIT/1 ML 3 ML SUBCUT SCH ×2 (08:21→17:36)
[2019-07-25] MEDS: TRAMADOL HCL 50 MG TABLET PO PRN (08:26)
[2019-07-25] MEDS: METFORMIN HCL 500 MG TABLET PO SCH (09:49)
[2019-07-25] MEDS: ENOXAPARIN SODIUM INJ 40 MG/0.4 ML DISP.SYRIN SUBCUT SCH (09:50)
[2019-07-25 12:00] VITALS: BP 147/79
--- NOTE | 2019-07-25 14:33 | PDOC DISCHARGE SUMMARY ---
Impression - Admit/DC Date/PCP Admission Date/Primary Care Provider: 07/24/19 09:49 ARTEM CORTEZUMATE, Discharge Date: 07/25/19 - Discharge Diagnosis (1) Diabetic foot infection Is this a current diagnosis for this admission?: Yes (2) Hyperglycemia due to type 2 diabetes mellitus Is this a current diagnosis for this admission?: Yes (3) COPD (chronic obstructive pulmonary disease) Is this a current diagnosis for this admission?: Yes (4) Status post amputation of left great toe Is this a current diagnosis for this admission?: Yes - Additional Information Resuscitation Status: Full Code Referrals: NEYDA CESAR MD [ACTIVE STAFF] - 08/05/19 8:45 am Prescriptions: Amoxicillin/Potassium Clav [Augmentin 875-125 Tablet] 1 tab PO Q12 3 Days #6 tablet Home Medications: Hum Insulin NPH/Reg Insulin Hm [Novolin 70-30 100 Unit/ml Vial] 30 unit SQ QPM 11/07/13 Hum Insulin NPH/Reg Insulin Hm [Novolin 70-30 100 Unit/ml Vial] 30 units SQ QAM 11/07/13 Metformin HCl [Glucophage] 1,000 mg PO BID 11/07/13 Acetaminophen [Tylenol 325 mg Tablet] 1,000 mg PO Q6HP PRN tablet 07/25/19 Amoxicillin/Potassium Clav [Augmentin 875-125 Tablet] 1 tab PO Q12 3 Days #6 tablet 07/25/19 Hum Insulin NPH/Reg Insulin Hm [Insulin 70-30 (NPH/Reg) 100 unit/mL] 30 unit SUBCUT BIDACBS unit 07/25/19 History of Present Illiness History of Present Illness: YANI WORTHINGTON is a 59 year old female with a history of type 2 diabetes mellitus, who presents to the hospital complaining of worsening of her left foot wound. Patient sustained a puncture injury to her left big toe about 1 week ago after stepping on her 's tools. Subsequently the area became more inflamed and more swollen. The surrounding area became erythematous. Denies any fevers or chills. She also endorses tenderness over the dorsum and plantar surface of her foot. In the ER, surgery was consulted and will be taking patient to the OR for incision and debridement. Patient currently n.p.o. status. Hospital Course Hospital Course: (1) Diabetic foot infection Is this a current diagnosis for this admission?: Yes Plan: Patient has been evaluated by Dr. Cesar who is planning to take patient to the OR. Blood cultures have been obtained Broad-spectrum antibiotic coverage given diabetes with vancomycin and Zosyn. Pain control as needed. 07/23/2019 Of the amputation has been performed. The patient will likely only need for 5 days of IV antibiotics postop as the infected tissue was removed and blood cultures are negative so far. 07/24/2019 The patient had physical therapy today. She is using a walker. Consider discharge tomorrow with prolonged course of oral antibiotics to compensate for the last 2 days of IV antibiotics. 07/25/2019 We will use Augmentin as an outpatient to complete antibiotic therapy (2) Hyperglycemia due to type 2 diabetes mellitus Qualifiers: Diabetes mellitus truck technician insulin use: with truck technician use Qualified Code(s): E11.65 - Type 2 diabetes mellitus with hyperglycemia; Z79.4 - group home (current) use of insulin Is this a current diagnosis for this admission?: Yes Plan: 07/23/2019 Accu-Cheks still variable. 70/30 insulin has been restarted. Continue current regimen including sliding scale. 07/24/2019 Starting to achieve better control. Adjust insulin accordingly. 07/25/2019 Adjustments made to insulin regimen. If she maintains a strict diabetic diet that should be adequate. It is more likely that she will not and her insulin needs will increase back to her preadmission levels (3) COPD (chronic obstructive pulmonary disease) Qualifiers: COPD type: unspecified COPD Qualified Code(s): J44.9 - Chronic obstructive pulmonary disease, unspecified Is this a current diagnosis for this admission?: Yes Plan: Not acutely exacerbated. Nebulizer treatments as needed. 07/23/2019 Stable as noted above. No changes in the treatment plan. 07/24/2019 Continue current regimen. Breathing is comfortable and patient remains adequately saturated on room air. 07/25/2019 Continue home regimen (4) Status post amputation of left great toe Is this a current diagnosis for this admission?: Yes Plan: 07/23/2019 Physical therapy consult has been ordered. 07/24/2019 Patient work with physical therapy today. She is having pain but is able to slowly ambulate with heel weightbearing using a walker. I explained that she would benefit from a Darco offloading shoe and she will need a walker with home physical therapy after discharge. 07/25/2019 Unfortunately the patient has no insurance and so home health, physical therapy and durable medical equipment not available excepted by [employer]hp[employer] payment. I reviewed with the patient the need for the short course of antibiotics and made sure that we prescribed a generic antibiotic that should be affordable. Hopefully she will be able to find an inexpensive walker or borrow one from somebody. She does have a follow-up with surgery for 2 weeks and she wants to reestablish with her primary care provider after this hospitalization. Physical Exam Vital Signs: Temp Pulse Resp BP Pulse Ox 98.1 F 87 16 147/79 H 96 07/25/19 11:01 07/25/19 11:01 07/25/19 11:01 07/25/19 11:01 07/25/19 11:01 Intake & Output 07/24/19 07/25/19 07/26/19 06:59 06:59 06:59 Intake Total 1680 1420 360 Balance 1680 1420 360 Weight 91.1 kg 91.1 kg General appearance: PRESENT: no acute distress, well-developed Respiratory exam: PRESENT: clear to auscultation jadon, symmetrical, unlabored. ABSENT: tachypnea, wheezes Cardiovascular exam: PRESENT: RRR, +S1, +S2 GI/Abdominal exam: PRESENT: normal bowel sounds, soft. ABSENT: tenderness Neurological exam: PRESENT: alert, awake, oriented to person, oriented to place, oriented to situation Psychiatric exam: PRESENT: flat affect. ABSENT: agitated, anxious Results Laboratory Results: WBC 9.1 10^3/uL (4.0-10.5) 07/24/19 04:53 RBC 3.86 10^6/uL (3.72-5.28) 07/24/19 04:53 Hgb 11.5 g/dL (12.0-15.5) L 07/24/19 04:53 Hct 33.6 % (36.0-47.0) L 07/24/19 04:53 MCV 87 fl (80-97) 07/24/19 04:53 MCH 29.6 pg (27.0-33.4) 07/24/19 04:53 MCHC 34.1 g/dL (32.0-36.0) 07/24/19 04:53 RDW 12.8 % (11.5-14.0) 07/24/19 04:53 Plt Count 256 10^3/uL (150-450) 07/24/19 04:53 Lymph % (Auto) 17.6 % (13-45) 07/24/19 04:53 Maury % (Auto) 9.2 % (3-13) 07/24/19 04:53 Eos % (Auto) 0.9 % (0-6) 07/24/19 04:53 Baso % (Auto) 0.1 % (0-2) 07/24/19 04:53 Absolute Neuts (auto) 6.6 10^3/uL (1.7-8.2) 07/24/19 04:53 Absolute Lymphs (auto) 1.6 10^3/uL (0.5-4.7) 07/24/19 04:53 Absolute Monos (auto) 0.8 10^3/uL (0.1-1.4) 07/24/19 04:53 Absolute Eos (auto) 0.1 10^3/uL (0.0-0.6) 07/24/19 04:53 Absolute Basos (auto) 0.0 10^3/uL (0.0-0.2) 07/24/19 04:53 Seg Neutrophils % 72.2 % (42-78) 07/24/19 04:53 Sodium 134.0 mmol/L (137-145) L 07/23/19 04:26 Potassium 3.8 mmol/L (3.6-5.0) 07/23/19 04:26 Chloride 100 mmol/L (98-107) 07/23/19 04:26 Carbon Dioxide 27 mmol/L (22-30) 07/23/19 04:26 Anion Gap 7 (5-19) 07/23/19 04:26 BUN 13 mg/dL (7-20) 07/23/19 04:26 Creatinine 0.78 mg/dL (0.52-1.25) 07/24/19 21:28 Est GFR ( Amer) > 60 (>60) 07/24/19 21:28 Est GFR (MDRD) Non-Af > 60 (>60) 07/24/19 21:28 Glucose 333 mg/dL (75-110) H 07/23/19 04:26 POC Glucose 235 mg/dL (70-110) H 07/25/19 11:03 Calcium 8.2 mg/dL (8.4-10.2) L 07/23/19 04:26 Magnesium 1.6 mg/dL (1.6-2.3) 07/23/19 04:26 Total Bilirubin 0.5 mg/dL (0.2-1.3) 07/22/19 15:58 Direct Bilirubin 0.0 mg/dL (0.0-0.4) 07/22/19 15:58 Neonat Total Bilirubin Not Reportable 07/22/19 15:58 Neonat Direct Bilirubin Not Reportable 07/22/19 15:58 Neonat Indirect Bili Not Reportable 07/22/19 15:58 AST 41 U/L (14-36) H 07/22/19 15:58 ALT 49 U/L (<35) H 07/22/19 15:58 Alkaline Phosphatase 240 U/L (38-126) H 07/22/19 15:58 Total Protein 7.5 g/dL (6.3-8.2) 07/22/19 15:58 Albumin 3.9 g/dL (3.5-5.0) 07/22/19 15:58 Stl C. Difficile GDH Ag NEGATIVE (NEGATIVE) 07/24/19 20:15 Stl C.difficile Tox A&B NEGATIVE (NEGATIVE) 07/24/19 20:15 Time Trough Drawn 8 07/24/19 21:28 Vancomycin Trough 6.6 ug/mL (5.0-20.0) 07/24/19 21:28 Impressions: Foot X-Ray 07/22/19 15:28 IMPRESSION: No acute osseous abnormality of the left foot. No subcutaneous emphysema or radiopaque foreign body. Plan Health Concerns: The patient's ability to provide care for herself. No dressings are required. The amputation site needs to be kept clean and dry. Plan of Treatment: Outpatient antibiotics as ordered. Follow-up with surgery. Goals: Complete healing of the amputation site Time Spent: Greater than 30 Minutes Stroke Is this a Stroke Patient?: No Acute Heart Failure - Is this a Heart Failure Patient?: No
== END 2019-07-25 17:40 | disposition home or self-care (01) | DRG 618 ==
LOC: ER 14:30 → INTOOBSV 17:59 → EH 17:59 → 4N 21:50 → OBSVTOIN 07-24 09:49
PROVIDERS: ADMIT Internal Medicine; ATTEND Hospitalist
PROC: 0Y6Q0Z0 Detachment at Left 1st Toe, Complete, Open Approach (ICD-10-PCS; principal; 2019-07-22 19:45)
DX: E11.621 Type 2 diabetes mellitus with foot ulcer (principal); S91.132A Puncture wound without foreign body of left great toe without damage to nail, initial encounter; L97.529 Non-pressure chronic ulcer of other part of left foot with unspecified severity; W22.8XXA Striking against or struck by other objects, initial encounter; J44.9 Chronic obstructive pulmonary disease, unspecified; E11.65 Type 2 diabetes mellitus with hyperglycemia; Z79.4 Long term (current) use of insulin; Z59.7 Insufficient social insurance and welfare support; Z88.8 Allergy status to other drugs, medicaments and biological substances
CPT/HCPCS: 01480; 36415; 80048; 80053; 80202; 82565; 82962; 83735; 85025; 85027; 87040; 87324; 87449; 99140; 99285; G0378; J1650; J1815; J2250; J2543; J2704; J3010; J3370; J3490; J7030; J7050; J7060